=== PATIENT | female | born 1960 | race African-American/Black ===

== ENCOUNTER 2022-12-12 09:33 | Day surgery (SDC) | payer OTHER ==
[2022-12-11 09:15] VITALS: BMI 27.8
[2022-12-12] MEDS ORDERED: PROPOFOL 20 ML ONE ×2 (10:44→11:15)
[2022-12-12] MEDS ORDERED: Lidocaine 2% MPF 10 ML AMP (For Epidural Use) ONE (10:44)
== END 2022-12-12 13:47 | disposition home or self-care (01) ==
LOC: CSHSDC 09:33
PROVIDERS: ATTEND Internal Medicine Gastroenterology
PROC: 0DBL8ZX Excision of Transverse Colon, Via Natural or Artificial Opening Endoscopic, Diagnostic (ICD-10-PCS; principal; 2022-12-12)
DX: Z12.11 Encounter for screening for malignant neoplasm of colon (principal); D12.3 Benign neoplasm of transverse colon; K57.30 Diverticulosis of large intestine without perforation or abscess without bleeding; K64.9 Unspecified hemorrhoids; K63.89 Other specified diseases of intestine; K58.1 Irritable bowel syndrome with constipation; J45.909 Unspecified asthma, uncomplicated; Z98.51 Tubal ligation status; Z90.710 Acquired absence of both cervix and uterus; Z90.722 Acquired absence of ovaries, bilateral
CPT/HCPCS: 88305; J2704

== ENCOUNTER 2025-01-19 10:39 | Day surgery (SDC) | payer OTHER ==
[2025-01-18 14:39] VITALS: BMI 27.8
[2025-01-19] MEDS ORDERED: Bacitracin 1 PK ONE (11:07)
[2025-01-19] MEDS ORDERED: Lidocaine 1% w/Epinephrine 1:200K 30 ML VIAL ONE (11:07)
[2025-01-19] MEDS ORDERED: AFRIN NASAL MIST 15 ML BOT ONE (11:16)
[2025-01-19] MEDS ORDERED: KETAMINE 100 MG/ML (5ML VIAL) ONE (11:21)
[2025-01-19] MEDS ORDERED: Lidocaine 4% PF 5 ML AMP ONE (11:41)
[2025-01-19] MEDS ORDERED: PROPOFOL 20 ML ONE ×2 (11:43→11:44)
[2025-01-19] MEDS ORDERED: Albuterol HFA (OR) 200 PUFF INH ONE (11:43)
[2025-01-19 11:46] LABS: Hematocrit 42.3 % (34.9-44.5); Hemoglobin 13.5 g/dL (12.0-15.5)
[2025-01-19] MEDS ORDERED: Ondansetron PF 4 MG/2 ML Vial ONE (11:56)
[2025-01-19] MEDS ORDERED: SUGAMMADEX SODIUM 200 MG/2 ML VIAL ONE (11:56)
[2025-01-19] MEDS ORDERED: Oxymetazoline HCl 0.05% (15 ML) ONE (11:57)
[2025-01-19 12:08] LABS: Anion Gap 16 mmol/L (10-20); BUN (Urea Nitrogen) 11 mg/dL (9.8-20.1); Calc. Creatinine Clearance 86 mL/min (70-130); Calcium 9.3 mg/dL (7.8-10.44); Carbon Dioxide 25 mmol/L (23-31); Chloride 107 mmol/L (98-107); Glucose 92 mg/dL (80-115); Potassium 4.7 mmol/L (3.5-5.1); Sodium 143 mmol/L (136-145)
[2025-01-19] MEDS ORDERED: Hydrocodone-Acetamin 15 ML UDCUP ONE (14:16)
== END 2025-01-19 15:00 | disposition home or self-care (01) ==
LOC: CSHSDC 10:39
PROVIDERS: ATTEND Otolaryngology Plastic Surgery within the Head & Neck
PROC: 099S8ZZ Drainage of Right Frontal Sinus, Via Natural or Artificial Opening Endoscopic (ICD-10-PCS; principal; 2025-01-19)
PROC: 099Q8ZZ Drainage of Right Maxillary Sinus, Via Natural or Artificial Opening Endoscopic (ICD-10-PCS; principal; 2025-01-19)
PROC: 099R8ZZ Drainage of Left Maxillary Sinus, Via Natural or Artificial Opening Endoscopic (ICD-10-PCS; principal; 2025-01-19)
PROC: 099T8ZZ Drainage of Left Frontal Sinus, Via Natural or Artificial Opening Endoscopic (ICD-10-PCS; principal; 2025-01-19)
DX: J32.4 Chronic pansinusitis (principal); J33.9 Nasal polyp, unspecified; J34.3 Hypertrophy of nasal turbinates; J34.2 Deviated nasal septum; J30.9 Allergic rhinitis, unspecified; J32.0 Chronic maxillary sinusitis; J32.1 Chronic frontal sinusitis; J32.2 Chronic ethmoidal sinusitis; J32.3 Chronic sphenoidal sinusitis; J33.0 Polyp of nasal cavity
CPT/HCPCS: 36415; 80048; 85014; 85018; 88304; J1010; J1100; J2704; Q0162